=== PATIENT | male | born 1950 | race Caucasian/White ===

== ENCOUNTER 2023-12-09 23:41 | Inpatient (IN) | payer OTHER, SELFPAY ==
[2023-12-09] VITALS (14 sets, daily range): BP systolic 127–192; BP diastolic 60–92
[2023-12-09 18:31] LABS: % Basophils 0.6 % (0-2); % Immature Granulocytes 0.4 % (0-0.5); % Lymphocytes 19.6 % (20.5-51.1); % Monocytes 9.2 % (1.7-9.3); % Neutrophils 68.2 % (42.2-75.2); Absolute Basophils 0.1 10^3/uL (0-0.2); Absolute Eosinophils 0.2 10^3/uL (0-0.7); Absolute Lymphocytes 1.6 10^3/uL (1.2-3.4); Absolute Monocytes 0.8 10^3/uL (0.1-0.6); Absolute Neutrophils 5.6 10^3/uL (1.4-6.5); Hematocrit 44.9 % (39.0-52.0); Hemoglobin 15.4 g/dL (13.0-18.0); Mean Corp Hgb Conc. 34.3 g/dL (33.0-37.0); Mean Corpuscular Hgb 28.9 pg (27.0-31.0); Mean Corpuscular Volume 84.2 fL (80.0-94.0); Mean Platelet Volume 10.2 fL (7.4-10.4); Nucleated Red Blood Cells % 0 % (-); Platelet Count 156 10^3/uL (130-400); Red Blood Cell Count 5.33 10^6/uL (4.70-6.10); Red Cell Dist. Width 12.6 % (11.5-14.5); White Blood Cell Count 8.2 10^3/uL (4.8-10.8)
--- NOTE | 2023-12-09 18:32 | ED.GENMED ---
History of Present Illness
General
Chief Complaint: Chest Pain
Source: patient and spouse
Exam Limitations: none
Time Seen by Provider: 12/09/23 18:22
Nursing documentation reviewed up to this point in time: agreed with
Travel History
Have you had any contact with someone who has COVID-19?: No
Do you have any symptoms of coronavirus? Fever > 100 degrees, chills, cough, shortness of breath, sore throat, loss of taste or smell, muscle aches, or headache?: No
History of Present Illness
History of Present Illness:
73-year-old male presents emergency room complaining of mid chest pain that began at around 5:30 PM. He ate dinner and then got up and went upstairs, and had the pain. It went away, he took a shower and it came back.
Past History
Past History
ED Past Medical History: CAD, HTN, Hypercholesterolemia, [place] (2004) and Other (kidney stone with stent, later stent removed)
ED Past Surgical History: Cardiac (stents 2004) and Orthopedic (R knee scoped 1979)
Social History
Tobacco: Former smoker
Alcohol: None
Personal:
Living: with family
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
Review of Systems
Review of Systems
Allergies reviewed?: Yes
All Other Systems: Not applicable
Constitutional: Reports no symptoms
EENT: Reports no symptoms
Respiratory: Reports no symptoms
Cardiac: Reports chest pain
ABD/GI: Reports no symptoms
: Reports no symptoms
Musculoskeletal: Reports no symptoms
Skin: Reports no symptoms
Neurological: Reports no symptoms
Endocrine: Reports no symptoms
Hematologic/Lymphatic: Reports no symptoms
Psychiatric: Reports no symptoms
Phy Exam
Physical Exam
Physical Exam:
Physical Exam
General: Afebrile
Neck: supple. no meningeal signs. normal posterior pharynx
Heart: s1/s2 regular rate and rhythm, no murmur. equal radial
pulses.
HEENT: Pupils equal round reactive to light, EOMI
Lungs: no acute respiratory distress. clear bilaterally
Abdomen: normal bowel sounds. not tender. no CVAT
Neuro: alert and oriented. no focal neurological deficits cranial nerves II through XII intact
Skin: no rash
Psychiatric: well kept. interactive and cooperative
Extremities: no edema. no calf tenderness. negative homans. good distal pulses
Scores
Heart Score for Chest Pain Patients
STEMI patient?: No
History: Moderately Suspicious
ECG: Normal
Age: >/= 65 years
Risk Factors: >/= 3 Risk Factors or History of CAD
Troponin: >1 - <3 x Normal Limit
Heart Score for Chest Pain Patients: 6
Heart Score Risk: 20.3% MACE over next 6 weeks
Course
Orders/Labs/Results
Orders:
Orders
12/09/23 18:00
EKG [Electrocardiogram (*1)] Urgent
Reason for Study: Chest Pain
EKG- Treatment ONCE
12/09/23 18:20
CBC/With Diff [Complete Blood Count/With Diff] Urgent
CMP [Comprehensive Metabolic Panel] Urgent
Lipase Urgent
Troponin I Urgent
12/09/23 18:32
Nitroglycerin Sublingual [Nitrostat (Sublingual)] 0.4 mg SL NOW STA
12/09/23 19:23
US Abdomen Complete/Upper Urgent
Comment:
Reason For Exam: chest pain, mild lipase elevation
12/09/23 21:20
Troponin I Urgent
12/09/23 21:54
Electrocardiogram (*1) Urgent
Reason for Study: Chest Pain
EKG- Treatment ONCE
12/09/23 22:26
Aspirin Chewable [Low Strength Aspirin] 324 mg PO NOW STA
12/09/23 22:29
Heparin 4,000 units IV NOW STA
Nursing to Place Non Medication Order As Directed
Physician Order: PTT 6 hours after initial start of Heparin infusion
12/09/23 22:30
Heparin 48281 Units/250 ml 25,000 units in 250 ml IV PER PROTOCOL
Weight to be used for heparin protocol in kilograms (kg):: 97.2
Protocol:: Cardiac Tx/Acute Coronary
PTT Goal Range to be used:: PTT 73 to 111 seconds
Order type:: Initial
INITIAL Infusion Dose (UNITS/KG/hr) & then follow protocol:: 12 units/kg/hr
Infusion Dose in UNITS/hr & then follow protocol (UNITS/hr):: 1,000
INFUSION RATE in mL/hr & then follow protocol (mL/hr):: 10
PTT less than or equal to 64 seconds:: Increase rate by 200 units/hr (+ 2 mL/hr)
PTT 64.1 to 72.9 seconds:: Increase rate by 100 units/hr (+ 1 mL/hr)
PTT 73 to 111 seconds:: Target Range. No change in rate.
PTT 111.1 to 130.9 seconds:: Decrease rate by 100 units/hr (- 1 mL/hr)
PTT 131 to 199.9 seconds:: HOLD for 1 hr. Then decrease rate by 200 units/hr (- 2 mL/hr)
PTT greater than or equal to 200 seconds:: HOLD for 2 hrs & Notify Provider. Then decrease by 200 units/hr (-
2 mL/hr)
Lab follow-up:: Each change, PTT q6h until 2 consecutive are therapeutic. Then PTT
daily.
12/09/23 22:44
Admit/Transfer Patient As Directed
Co-Sign Provider:
Level of Care: Inpatient admission
Assign to:: IVU
Physician / Group: dr whitt
Diagnosis: unstable ungina
Reason for Hospitalization: unstable angina, cath, heparin gtt
Expected length of stay greater than two midnights?: Yes
ELOS- Estimated Length of Stay in days: 3
I certify the patient meets the requirements for IP care: Yes
12/09/23 22:45
PTT Urgent
Comment: Obtain baseline before beginning heparin infusion if not already collected
12/09/23 22:50
Code Status As Directed
Resuscitation Status: Full Code
Abnormal Lab Results
12/09/23 12/09/23
18:20 21:20
Absolute Monos (auto) 0.8 H 10^3/uL
(0.1-0.6)
Lymphocytes % 19.6 L %
(20.5-51.1)
BUN 34 H mg/dl
(9-20)
Glucose 138 H mg/dl
(70-99)
AST 119 H U/L
(17-59)
ALT 64 H U/L
(0-50)
Alkaline Phosphatase 128 H U/L
(38-126)
Troponin I 0.081 H* D ng/ml
Lipase 365 H U/L
(23-300)
12/09/23 18:20
12/09/23 18:20
Vital Signs
Initial and Last Documented VS:
Initial Vital Signs
Temp Pulse Resp BP Pulse Ox
98.1 F 89 18 192/92 98
12/09/23 18:05 12/09/23 18:05 12/09/23 18:05 12/09/23 18:05 12/09/23 18:05
Last Documented Vital Signs
Temp Pulse Resp BP Pulse Ox
98.1 F 69 20 127/71 93
12/09/23 18:05 12/09/23 22:45 12/09/23 22:45 12/09/23 22:30 12/09/23 22:45
MDM/Problems Addressed
Differential Diagnosis Includes:
ACS, PE, pancreatitis
MDM/Problems Addressed:
73-year-old male with unstable angina. Do not suspect pancreatitis or common bile duct stone. Abdomen exam benign.
Chronic conditions affecting care: CAD
Acute Exacerbation and/or Progression of Chronic Illness: CAD
*Pulse Oximetry
Patient hypoxic: no
*EKG
Interpreted by ED Provider?: Yes
EKG Intrepretation Date: 12/09/23
EKG Intrepretation Time: 18:03
Interpretation: normal
Comparison EKG: no comparison EKG present
Heart Rate: 87
Rate: normal
Rhythm: sinus
[place]: normal axis
Interval: normal interval
QRS Pattern: normal QRS
Ischemia: no ischemia
*Sectionizer Interpretation
Rate: normal
Interpretation: normal
Heart Rate: 84
Rhythm: sinus
*Critical Care Note
Total Time (30-74mins, 75-104mins- exclusive of procedures): 30
comment:
Critical care statement: A total of 30 minutes of critical care time was provided for this patient. This includes management of unstable vital signs, evaluation of the patient at bedside, reviewing the patient's pertinent medical records, discussion
with consultants, review of old EKGs and review of pertinent medical records. This time with separate from time utilized to perform the aforementioned documented procedures
Data Reviewed
Review of Other/Old Records Reveals: Records
Source: records (prior 2004)
Patient Management
Discussion with other providers: Repairer Screen Crusher (cardiology Dr. Whitt)
Escalation/DeEscalation of care consider admission/obs:
admit indicated
ED Attending Note
-
Portions of this chart may have been created with voice recognition software.� Occasional wrong word or��sound alike� substitutions may have occurred due to the inherent limitations of voice recognition software.
Discharge Plan
Departure
Patient Disposition: Admit
Date of Disposition: 12/09/23
Time of Disposition: 22:27
Admit to: IVU
Presentation/result/management discussed w/ accepting MD/DO: cardiology, Dr. Whitt
Patient with high blood pressure during this ER visit?: Yes
Condition: Fair
Discharge Problem:
Unstable angina
Prescriptions:
No Action
atorvastatin 40 MG tablet
40 mg PO HS
aspirin 81 MG tablet,delayed release (DR/EC)
81 mg PO DAILY
multivitamin 1 EACH tablet
1 ea PO DAILY
tamsulosin 0.4 MG capsule
0.4 mg PO HS
metoprolol succinate 50 MG tablet extended release 24 hr
50 mg PO DAILY 0RF
Eliquis 5 MG tablet
5 mg PO BID Qty: 0 0RF
lisinopril 40 mg tablet
40 mg PO DAILY
Referrals:
Gareth Schreiber MD [Family Provider] -
Interventions
Interventions:
*Risk Screen - Suicide Last Done: 12/09/23 18:29
*General Assessment Last Done: 12/09/23 23:24
*Neglect/Abuse Screening Last Done: 12/09/23 18:29
ED- Fall Risk Assessment Last Done: 12/09/23 23:24
*ED COVID-19 Vaccine History Last Done: 12/09/23 23:18
ED- Cardiac Assessment Last Done: 12/09/23 23:24
Discharge Date and Time
Print Language: NICARAGUAN
[2023-12-09 18:45] LABS: ALT (SGPT) 64 U/L (0-50); AST (SGOT) 119 U/L (17-59); Albumin 4.6 g/dl (3.5-5.0); Alkaline Phosphatase 128 U/L (38-126); Blood Urea Nitrogen 34 mg/dl (9-20); Calcium 9.8 mg/dl (8.4-10.2); Carbon Dioxide 24 mmol/L (22-30); Chloride 104 mmol/L (98-107); Glucose 138 mg/dl (70-99); Lipase 365 U/L (23-300); Potassium 4.5 mmol/L (3.5-5.1); Sodium 138 mmol/L (135-145); Total Bilirubin 0.8 mg/dl (0.2-1.3); Total Protein 7.9 g/dl (6.3-8.2); eGFR > 60.00
[2023-12-09] MEDS: NITROSTAT (SUBLINGUAL) 0.400000000000000022 MG SL (18:54)
[2023-12-09 18:56] LABS: Troponin I < 0.012 ng/ml
[2023-12-09 21:52] LABS: Troponin I 0.081 ng/ml
[2023-12-09] MEDS: LOW STRENGTH ASPIRIN 324 MG PO (22:57)
[2023-12-09] MEDS: HEPARIN 4000 UNITS IV (22:57)
[2023-12-09] MEDS: HEPARIN 25000 UNITS/250 ML IV (22:58)
[2023-12-09 23:03] LABS: APTT 33.6 Sec (23.4-35.0)
--- NOTE | 2023-12-09 23:26 | HPS.HSE ---
Family Physician
-
Family Physician: Gareth Schreiber
Chief Complaint
-
chest pain
History of Present Illness
73-year-old male pt of DR Simpson. with history of Parox afib, CAD with prior drug-eluting stent (DOMINIQUE) to the mid right coronary artery (midRCA) and obtuse marginal 3 (OM 3) in 2004;
presents emergency room complaining of mid chest pain that began at around 5:30 PM. He ate dinner and then got up and went upstairs, and had the pain. It went away, he took a shower and it came back.
PT describes pain in lower sternal area. pain was initially 6-7/10 and after nitro SL given in ED pain is now 0.
ED treatment:
-Nitro SL x 1
-asa 325mg now
-heparin gtt started
EKG nsr, no st elevation
-Trop #1 normal, #2 0.081
ECHO 06/06/23
CONCLUSIONS
Normal left ventricular size, wall thickness and systolic function.
Mild basal inferolateral hypokinesis.
LV ejection fraction is 50-55% by Perez's method of discs.
Stage I diastolic dysfunction suggestive of abnormal relaxation.
Normal right ventricular size and function.
Moderately dilated left atrium.
No significant valvular disease.
Estimated pulmonary artery pressure of 27 mmHg assuming a right atrial pressure
of 3 mmHg.
Medical History
Past Medical History
Past Medical History: Reports Arrhythmia (parox afib), CAD (CAD with prior drug-eluting stent (DOMINIQUE) to the mid right coronary artery (midRCA) and obtuse marginal 3 (OM 3) in 2004;), HTN, Hypercholesterolemia, [place] (2004) and Other (bph,renal
cysts,kidney stone, elevated PSA)
Past Surgical History: Reports Cardiac ( drug-eluting stent (DOMINIQUE) to the mid right coronary artery (midRCA) and obtuse marginal 3 (OM 3) in 2004;), Cholecystectomy (2022) and Orthopedic (right tKR 2020, Left shoulder arthroscopy, cardioversion,
cataract removal, ureteroscopies, hernia repair 2013)
Social History
Tobacco: Non-smoker
Alcohol: None
Drug: None
Personal:
Living: With Family
Employment: Retired
Family History
Family History: Not pertinent
Allergies / Home Medications
Allergies reflects when Allergies were last updated in [facility].
Home Medications with original date entered in [facility]
Allergy/Medication List:
Allergies
Allergy/AdvReac Type Severity Reaction Status Date / Time
Iodinated Contrast Media Allergy DYE-HIVES Verified 12/09/23 18:09
Home Medications
aspirin 81 mg tablet,delayed release 81 mg PO DAILY Blood clot prevention/tx
atorvastatin 40 mg tablet 40 mg PO HS High cholesterol
multivitamin 1 ea PO DAILY Supplement
tamsulosin 0.4 mg capsule 0.4 mg PO HS Urinary issue
metoprolol succinate 50 mg tablet,extended release 24 hr 50 mg PO daily
apixaban 5 mg tablet (Eliquis) 5 mg PO BID Blood clot prevention/tx last dose am 12/09/23
lisinopril 40 mg tablet 40 mg PO DAILY
Review of Systems
-
History Source: Patient and Family
A 12 point ROS was completed and negative except as noted: Yes
Constitutional: Reports No Symptoms
EENT: Reports No Symptoms
Respiratory: Reports No Symptoms
Cardiac: Reports Chest Pain
Abdomen/GI: Reports No Symptoms
: Reports No Symptoms
Musculoskeletal: Reports No Symptoms
Skin: Reports No Symptoms
Neurological: Reports No Symptoms
Endocrine: Reports No Symptoms
Hematologic/Lymphatic: Reports No Symptoms
Psych: Reports No Symptoms
Physical Exam
Vital Signs
Vital Signs
Temp Pulse Resp BP Pulse Ox
98.1 F 69 20 127/71 93
12/09/23 18:05 12/09/23 22:45 06/04/24 22:45 12/09/23 22:30 12/09/23 22:45
Physical Exam
General: Well Developed, Well Nourished, No Apparent Distress and Comfortable
HEENT: NormoCephalic, Moist mucous membranes, Atraumatic and Good Dentition
Respiratory: Clear and Non Labored Respirations
Cardiac: Regular Rhythm (HR nsr 60-70s)
Breast: Deferred by me
GI: Soft, Non Tender, Non Distended and Normal Bowel Sounds
Rectal: Deferred by Provider
Genito-urinary: Deferred by me
Musculoskeletal: No Clubbing and No Cyanosis
Skin: Warm and Dry
Neuro: Awake, Alert, Oriented, AO x 3 and No Motor Deficits
Hematologic/Lymphatic: No Lymphadenopathy
Psych: Calm
Laboratory Results
-
12/09/23 18:20
12/09/23 18:20
Laboratory Results
APTT 33.6 Sec (23.4-35.0) 12/09/23 22:45
Total Bilirubin 0.8 mg/dl (0.2-1.3) 12/09/23 18:20
AST 119 U/L (17-59) H 12/09/23 18:20
ALT 64 U/L (0-50) H 12/09/23 18:20
Alkaline Phosphatase 128 U/L (38-126) H 12/09/23 18:20
Troponin I 0.081 ng/ml H* D 12/09/23 21:20
Lipase 365 U/L (23-300) H 12/09/23 18:20
Data Reviewed
-
Ultrasound: Report Reviewed by me
Medical Tests (Nuc Med, Echo, EKG etc): Report Reviewed by me and Discussed with Physician
Lab Data: Labs Reviewed by me and Discussed with Physician
Impression/Plan
-
IMPRESSION:
73-year-old male pt of DR Simpson. with history of Parox afib, CAD with prior drug-eluting stent (DOMINIQUE) to the mid right coronary artery (midRCA) and obtuse marginal 3 (OM 3) in 2004;
presents emergency room complaining of mid chest pain that began at around 5:30 PM. He ate dinner and then got up and went upstairs, and had the pain. It went away, he took a shower and it came back.
PT describes pain in lower sternal area. pain was initially 6-7/10 and after nitro SL given in ED pain is now 0.
PLAN:
Admit to service of Dr Castellon
#unstable angina
-admit to ivu
-trop #1 0.012, #2 0.081--> cont to trend
-EKG NSR without ST elevations--> cont to trend with troponin
- Received ASA 325mg and nitro SL in and currently CP free
- Cont heparin gtt with protocol
-npo after midnight for poss cardiac cath in am
- cont asa 81 daily
-nitro prn
#htn
-cont lisinopril
#parox afib
-Currently in NSR
-Per his watch sometimes still has paroxysms of afib
- hold eliquis for now in setting of heparin gtt initiation.....last dose of eliquis was am 12/09/23
#hld
-LFT elevated will hold for now
-repeat labs in am
#cad
-cont asa 81 daily
#bph
-cont flomax
full code
[2023-12-10] VITALS (14 sets, daily range): BP systolic 102–142; BP diastolic 53–75; BMI 33.5
[2023-12-10 03:23] LABS: Troponin I 0.099 ng/ml
--- NOTE | 2023-12-10 03:52 | EDRN ---
House provider Daphne Pollack was informed third troponin = 0.099 via TT. Additional troponin orders placed.
[2023-12-10 05:31] LABS: Hemoglobin 13.9 g/dL (13.0-18.0); Mean Corp Hgb Conc. 33.1 g/dL (33.0-37.0); Mean Corpuscular Hgb 28.7 pg (27.0-31.0); Mean Corpuscular Volume 86.8 fL (80.0-94.0); Mean Platelet Volume 10.5 fL (7.4-10.4); Platelet Count 154 10^3/uL (130-400); Red Blood Cell Count 4.84 10^6/uL (4.70-6.10); Red Cell Dist. Width 12.7 % (11.5-14.5)
[2023-12-10 05:40] LABS: APTT 88.4 Sec (23.4-35.0)
[2023-12-10 06:00] LABS: ALT (SGPT) 273 U/L (0-50); AST (SGOT) 196 U/L (17-59); Albumin 3.7 g/dl (3.5-5.0); Alkaline Phosphatase 148 U/L (38-126); Blood Urea Nitrogen 27 mg/dl (9-20); Calcium 8.9 mg/dl (8.4-10.2); Carbon Dioxide 25 mmol/L (22-30); Chloride 106 mmol/L (98-107); Estimated Creatinine Clearance 93 ml/min; Glucose 95 mg/dl (70-99); Potassium 3.9 mmol/L (3.5-5.1); Sodium 139 mmol/L (135-145); Total Bilirubin 0.9 mg/dl (0.2-1.3); Total Protein 6.4 g/dl (6.3-8.2); eGFR > 60.00
--- NOTE | 2023-12-10 08:19 | HPS.HSE ---
Addendum entered and electronically signed by Gacria Castellon MD 12/10/23 09:24:
Patient seen and examined in collaboration with [facility]; agree with below.
-73-year-old male with known coronary artery disease (PCI in 2004), hypertension, hyperlipidemia, PAF (on Eliquis), and prediabetes presenting with ACS, mildly elevated troponin consistent with an NSTEMI.
-Patient will undergo cardiac catheterization today.
-Continue heparin drip; has been given full-dose aspirin.
-Will need an echocardiogram this admission.
-Mildly abnormal LFTs; etiology unclear (hepatic congestion?, but no overt signs of CHF)--will continue to follow for now.
-Will hold off on statin for now due to the abnormal LFTs.
Original Note:
Family Physician
-
Family Physician: Gareth Schreiber
Chief Complaint
-
epigastric discomfort
History of Present Illness
73 y/o male with CAD with NSTEMI in 2004 (per notes predominately GI symptoms)- stenting at that time, HTN, dyslipidemia, PAF on Eliquis, DJD, and BPH and elevated PSA who is here for evaluation after dinner last night, around 5 PM he developed
epigastric discomfort that felt like a gas bubble. It came and went until 9:30 PM and has been gone ever since. He did have some nausea, vomiting, and SOB as well. Currently comfortable and in no acute distress. EKG's normal. Troponin 0.081 and
0.099. Liver tests elevated.
Medical History
Past Medical History
Past Medical History: Reports Arrhythmia and CAD
Past Surgical History: Reports Cholecystectomy
Social History
Tobacco: Non-smoker
Alcohol: None
Personal:
Living: With Family
Family History
Family History: Not pertinent
Allergies / Home Medications
Allergies reflects when Allergies were last updated in [facility].
Home Medications with original date entered in [facility]
Allergy/Medication List:
Allergy : IV dye
Home medicines:
aspirin 81 mg PO daily
atorvastatin 40 mg PO daily
Eliquis 5 mg PO BID
lisinopril 40 mg PO daily
metoprolol succinate 50 mg PO daily
multivitamin 1 daily
tamsulosin 0.4 mg HS
Review of Systems
-
History Source: Patient
A 12 point ROS was completed and negative except as noted: Yes
Respiratory: Reports Trouble Breathing
Cardiac: Reports Chest Pain
Abdomen/GI: Reports Abdominal Pain, Nausea and Vomiting
Physical Exam
Vital Signs
Vital Signs
Temp Pulse Resp BP Pulse Ox
98.1 F 62 19 136/62 95
12/09/23 18:05 12/10/23 06:00 12/10/23 06:00 12/10/23 06:01 12/09/23 23:00
Physical Exam
General: Well Developed, Well Nourished and No Apparent Distress
HEENT: NormoCephalic and Anicteric
Respiratory: Clear and Non Labored Respirations
Cardiac: Regular Rhythm
GI: Soft, Non Tender and Non Distended
Skin: Warm and Dry
Neuro: AO x 3
Psych: Calm
Laboratory Results
-
12/10/23 05:20
12/10/23 05:20
Laboratory Results
APTT 88.4 Sec (23.4-35.0) H 12/10/23 05:20
Total Bilirubin 0.9 mg/dl (0.2-1.3) 12/10/23 05:20
AST 196 U/L (17-59) H 12/10/23 05:20
ALT 273 U/L (0-50) H 12/10/23 05:20
Alkaline Phosphatase 148 U/L (38-126) H 12/10/23 05:20
Troponin I Cancelled 12/10/23 05:29
Lipase 365 U/L (23-300) H 12/09/23 18:20
Data Reviewed
-
Ultrasound: Report Reviewed by me (abdominal u/s: Prior cholecystectomy. Simple bilateral renal cysts. Nonvisualization of the pancreas, proximal IVC and abdominal aorta.)
Medical Tests (Nuc Med, Echo, EKG etc): Image Personally Visualized and interpreted (EKG NSR) and Other (will order updated echo)
Lab Data: Labs Reviewed by me
Impression/Plan
-
IMPRESSION/PLAN:
NSTEMI:
-this is high risk diagnosis
-patient with known CAD and stenting, with similar symptoms with [place] 2004
-full dose aspirin administered, continue 81 mg daily- continue heparin drip, which requires intensive monitoring
-cardiac cath today- needs pre-treatment with IV dye allergy- per Dr. Vang will give famotidine and prednisone now, then corn lab technician will order/administer Benadryl and prednisone solution maker to corn lab technician at appropriate time. I updated corn lab technician charge
nurse on this as well.
-continue BB, hold statin with elevated LFT's
-trend trops to peak
-check echo
HTN:
-continue ACEI and BB and monitor
Dyslipidemia:
-check lipids
-hold statin as above
Elevated LFT's:
-no liver abnormality on u/s
-denies ETOH or Tylenol use
-follow LFT's. May need more work-up, but address urgent cardiac issues first.
-holding statin
[2023-12-10] MEDS: ASPIR LOW (ENTERIC COATED) 81 MG PO (08:22)
[2023-12-10] MEDS: THERAGRAN 1 TABLET PO (08:22)
[2023-12-10] MEDS: ZESTRIL 40 MG PO (08:23)
[2023-12-10] MEDS: TOPROL XL 50 MG PO (08:23)
[2023-12-10 09:24] LABS: Troponin I 0.079 ng/ml
[2023-12-10] MEDS: DELTASONE 50 MG PO (09:39)
[2023-12-10] MEDS: NSS (PRESERVATIVE FREE) 8 ML IV (09:39)
[2023-12-10] MEDS: PEPCID 20 MG IV (09:40)
--- NOTE | 2023-12-10 10:40 | CARDSERVLU ---
Echocardiogram with [facility] completed after protocol screening completed. Allergies verified.
Patent IV site: __existing 20 P RFA___
IV site flushed with 0.9% NaCl pre and post administration.
Diluted bolus method utilized to enhance visualization of ventricular basurto.
Total volume given: __4.0__ mL
Patient tolerated all procedures well without complications.
[2023-12-10 13:10] LABS: APTT 92.5 Sec (23.4-35.0)
--- NOTE | 2023-12-10 15:32 | ITS.CL.CATH ---
Independent Contractor - Catheterization
Cardiac Catheterization
Procedure Report:
CARDIAC CATHETERIZATION REPORT
Date of Procedure: 12/10/2023
Referring: Garcia Castellon M.D.
INDICATION: Known coronary artery disease, mild troponin elevation.
PROCEDURE:
1. Left heart catheterization.
2. Coronary angiography.
ACCESS:
6 Q[place] right radial artery.
CATHETERS:
1. 5 [place] JR4.
2. 5 [place] JL 3.5.
HEMODYNAMIC DATA
Weight (kg): 97.1
AO (s/d/x, mmHg): 118/72/93
LV (s/x mmHg): 119/15
LEFT VENTRICULOGRAPHY: Not performed.
CORONARY ANGIOGRAPHY
Dominance: Right.
Left Main: Normal size, trifurcating vessel. There is no coronary artery disease.
LAD: Normal size vessel giving rise to 2 diagonals. There are luminal irregularities in the proximal vessel. There is a small, angulated spicule, possibly a healed plaque in the proximal vessel immediately before a downward turn of the LAD that
is nonobstructive.
Ramus: Small, diminutive vessel. There is no coronary disease.
Circumflex: Normal size, nondominant vessel giving rise to 2 obtuse marginals. OM1 is a small to medium size vessel approximately 2 mm in diameter. OM 2 is a much larger vessel that subsequently bifurcates into an upper and lower branch. The
upper branch is severely tortuous. The lower branch is a more dominant of the 2 branches and supplies the inferolateral wall. A patent stent is present in the proximal portion of the lower branch of OM 2 with no evidence of in-stent restenosis.
RCA: Normal size, dominant vessel. A patent stent is present in the mid vessel with no evidence of in-stent restenosis. There are minor luminal irregularities.
INTERVENTION(S)
None.
Closure Device: Vascular band.
Radiation (mGy): 344.75
DAP (cm2.Gy): 20.5158
Fluoroscopy time (minutes): 1.8
Sedation time (minutes): 34
CONCLUSIONS
1. Right dominant circulation with patent stents in the mid RCA and the proximal portion of the lower branch of OM 2, a nonocclusive spicular lesion in the proximal LAD which may be a healed plaque and minor luminal irregularities elsewhere.
2. Top normal filling pressures (LVEDP = 15 mmHg at 97.1 kg).
RECOMMENDATIONS:
1. Expectant management after cardiac catheterization via right radial approach.
2. Limited weight bearing on the right wrist for one week.
3. No obvious source for troponin elevation or chest discomfort. Review of the chart shows evidence of severe hypertension on presentation, raising the possibility of hypertensive emergency.
4. Workup transaminitis. Minimize hepatotoxins.
Copy to: Garcia Castellon M.D., Gareth Schreiber M.D., Eric Simpson M.D.
Lewis Vang DO, FACC, FACP
[2023-12-10] MEDS: NSS 1000 IV (16:49)
--- NOTE | 2023-12-10 19:32 | PTCARENOTE ---
Patient received from garage laborer via wheelchair. Patient ambulated into the room and used the bathroom. Cath site intact, no bleeding. VSS. AAOx3, patient oriented to the room. Call yepez is within reach.
[2023-12-10] MEDS: FLOMAX 0.400000000000000022 MG PO (20:38)
[2023-12-11 03:30] VITALS: BP 110/59
[2023-12-11 05:49] LABS: Hemoglobin 13.7 g/dL (13.0-18.0); Mean Corp Hgb Conc. 33.4 g/dL (33.0-37.0); Mean Corpuscular Hgb 29.1 pg (27.0-31.0); Mean Corpuscular Volume 87.2 fL (80.0-94.0); Mean Platelet Volume 10.6 fL (7.4-10.4); Platelet Count 150 10^3/uL (130-400); Red Cell Dist. Width 12.6 % (11.5-14.5); White Blood Cell Count 8.7 10^3/uL (4.8-10.8)
[2023-12-11 06:08] LABS: ALT (SGPT) 170 U/L (0-50); AST (SGOT) 70 U/L (17-59); Albumin 3.5 g/dl (3.5-5.0); Alkaline Phosphatase 120 U/L (38-126); Blood Urea Nitrogen 28 mg/dl (9-20); Calcium 8.7 mg/dl (8.4-10.2); Carbon Dioxide 22 mmol/L (22-30); Chloride 106 mmol/L (98-107); Estimated Creatinine Clearance 94 ml/min; Glucose 129 mg/dl (70-99); HDL Cholesterol 52 mg/dl; LDL Cholesterol, Calculated 57 mg/dl; Sodium 137 mmol/L (135-145); Total Bilirubin 0.6 mg/dl (0.2-1.3); Total Cholesterol 123 mg/dl (50-199); Total Protein 6.2 g/dl (6.3-8.2); Triglyceride 72 mg/dl (10-149); Very Low Density Lipoprotein 14 mg/dl (0-30); eGFR > 60.00
--- NOTE | 2023-12-11 06:59 | CON.GI ---
Addendum entered and electronically signed by DAINA Barrett 12/11/23 15:03:
message sent to office to arrange OP follow up with [facility]
Original Note:
Consultation
-
Date/Time Consultation Requested: 12/10/23 1500
Date/Time Consultation Performed: 12/11/23 0700
Requesting Provider: DAINA Hartman
Performing Provider: DAINA Blanchard, Ronak Maria MD
Reason for Consultation: increase liver function
Medical History
Chief Complaint / HPI
Chief Complaint: epigastric/chest pain
History of Present Illness:
Pt is a 73yo with hx Afib on Eliquis, CAD with DOMINIQUE 2004, HTN, hypercholesterolemia, NH, pre DM prior madina 04/2023 presents with chest pain/epigastric pain. Initial concern for for unstable angina with peak trop 0.099. He completed cath 12/09 with
patent stents non occlusive lesion proximal LAD healed plaque with luminal irregularity and normal filling pressure with no obvious source for troponin elevation and chest pain. He was also noted with some rise in LFT's after admission with bili
0.9, AST 196, ALT 273 and alk phos 148. Initial lipase 365. 6/4- US abdomen noted with prior madina, CBD normal b/l simple renal cysts and non visualization of pancreas, proximal IVC and abdominal aorta. Prior LFT's normal in [id number]. Pain
similar to pain when madina completed last fall and post prandial with onset Friday night. Pain was 9/10 on admission now resolved. Since madina he has had some mild incisional discomfort and feeling of bubble in epigastric area at time. He also
admits to vomiting with onset of pain and dark urine. No new medications. No ETOH use.
Pt had rare NSAID last 2 months ago. He otherwise denies dysphagia, GERD, diarrhea, constipation or rectal bleeding.
Past Medical History
Past Medical History: Arrhythmias (PAF), CAD (with DOMINIQUE), HTN, Hypercholesterolemia, NH and Other (BPH, renal cysts, kidney stones, elevated PSA, pre DM)
Past Surgical History: Cardiac (cardiac stent-mid RCA, obtuse marginal 3 ), Cholecystectomy and Other (right tKR 2020, Left shoulder arthroscopy, cardioversion, cataract removal, ureteroscopies, hernia repair 2013)
Social History
Tobacco: Former Smoker (quit 1989)
Alcohol: Former (quit 1992)
Drug: Marijuana (occasional gummy)
Personal:
Living: With Family
Employment: Retired
Family History
Family History: Other (no family hx colon Ca or polyps)
Allergies / Home Medications
Allergy/AdvReac Type Severity Reaction Status Date / Time
Iodinated Contrast Media Allergy DYE-HIVES Verified 12/09/23 18:09
�Medication �Instructions �Recorded
aspirin 81 mg tablet,delayed 81 mg PO DAILY Blood clot 04/26/14
release prevention/tx
atorvastatin 40 mg tablet 40 mg PO HS High cholesterol 04/26/14
multivitamin 1 ea PO DAILY Supplement 04/19/20
tamsulosin 0.4 mg capsule 0.4 mg PO HS Urinary issue 04/19/20
metoprolol succinate 50 mg 50 mg PO DAILY 06/02/20
tablet,extended release 24 hr
apixaban 5 mg tablet (Eliquis) 5 mg PO BID Blood clot 06/08/21
prevention/tx ##0
lisinopril 40 mg tablet 40 mg PO DAILY 12/09/23
Review of Systems
-
History Source: Patient
Constitutional: Reports No Symptoms
EENT: Reports No Symptoms
Respiratory: Reports No Symptoms
Cardiac: Reports Chest Pain
Abdomen/GI: Reports Abdominal Pain, Nausea and Vomiting
: Reports Dark Urine
Musculoskeletal: Reports No Symptoms
Skin: Reports No Symptoms
Neurological: Reports No Symptoms
Endocrine: Reports No Symptoms
Hematologic/Lymphatic: Reports No Symptoms
Vital Signs
Temp Pulse Resp BP Pulse Ox
97.9 F 69 18 110/59 93
12/11/23 03:30 12/11/23 03:30 12/11/23 03:30 12/11/23 03:30 12/11/23 03:30
Physical Exam
Exam
General: Well Developed, Well Nourished and No Apparent Distress
HEENT: Normocephalic, Anicteric and Moist Mucous Membranes
Respiratory: Clear
Cardiac: Regular Rhythm
GI: Soft, Non Tender and Non Distended
Musculoskeletal: No Clubbing and No Cyanosis
Skin: Warm and Dry
Neuro: Awake, Alert and AO x 3
Psych: Calm
Results
WBC 8.7 10^3/uL (4.8-10.8) 12/11/23 04:32
Hgb 13.7 g/dL (13.0-18.0) 12/11/23 04:32
Hct 41.0 % (39.0-52.0) 12/11/23 04:32
MCV 87.2 fL (80.0-94.0) 12/11/23 04:32
Plt Count 150 10^3/uL (130-400) 12/11/23 04:32
Absolute Neuts (auto) 5.6 10^3/uL (1.4-6.5) 12/09/23 18:20
APTT 92.5 Sec (23.4-35.0) H 12/10/23 12:38
Sodium 137 mmol/L (135-145) 12/11/23 04:32
Potassium 4.0 mmol/L (3.5-5.1) 12/11/23 04:32
Chloride 106 mmol/L (98-107) 12/11/23 04:32
Carbon Dioxide 22 mmol/L (22-30) 12/11/23 04:32
BUN 28 mg/dl (9-20) H 12/11/23 04:32
Creatinine 0.8 mg/dL (0.7-1.3) 12/11/23 04:32
Calcium 8.7 mg/dl (8.4-10.2) 12/11/23 04:32
Total Bilirubin 0.6 mg/dl (0.2-1.3) 12/11/23 04:32
AST 70 U/L (17-59) H 12/11/23 04:32
ALT 170 U/L (0-50) H 12/11/23 04:32
Alkaline Phosphatase 120 U/L (38-126) 12/11/23 04:32
Lipase 365 U/L (23-300) H 12/09/23 18:20
Diagnostic Image Results:
12/09/23 : US abdomen Prior cholecystectomy.Simple bilateral renal cysts. Nonvisualization of the pancreas, proximal IVC and abdominal aorta. CBD normal
03/2023 H[facility]
Gallbladder not visualized after 4 hours. This is consistent with cystic duct obstruction.
No evidence for common bile duct obstruction.
04/2023 madina- operative cholangiogram neg
07/2021 CT Abd/pel Without Iv Or Oral
1). There are no obstructing renal or ureteral calculi.
There is no hydronephrosis or hydroureter.
2). There are small bilateral nonobstructing renal calculi.
3). There are small bilateral renal cysts.
4). There is cholelithiasis.
5). Diverticuli are present in the colon with no CT evidence of diverticulitis.
6). There is multilevel lumbar degenerative disc disease.
Prior GI Procedures:
EGD: none
Colonoscopy: 11/2022 [facility]
Three very benign, small polyps removed. Nothing
concerning.
- One 4 mm polyp in the cecum, removed with a cold
snare. Resected and retrieved.
- Two small polyps in the sigmoid colon and in the
transverse colon, removed with a jumbo cold forceps.
Resected and retrieved.
- Diverticulosis in the left colon.
- The examined portion of the ileum was normal.
bx hyperplastic polyp melanosis coli
Assessment / Plan
-
Pt is a 73yo with hx Afib on Eliquis, CAD with DOMINIQUE 2004, HTN, hypercholesterolemia, NH, pre DM prior madina 04/2023 presents with chest pain/epigastric pain. Initial concern for for unstable angina with peak trop 0.099. He completed cath 12/09 with
patent stents non occlusive lesion proximal LAD healed plaque with luminal irregularity and normal filling pressure with no obvious source for troponin elevation and chest pain. He was also noted with some rise in LFT's after admission with bili
0.9, AST 196, ALT 273 and alk phos 148. Initial lipase 365. 12/08- US abdomen noted with prior madina, CBD normal b/l simple renal cysts and non visualization of pancreas, proximal IVC and abdominal aorta. Prior LFT's normal in [id number]. Pain
similar to pain he had last fall with prior madina.
-epigastric/chest pain
-some chronic abd discomfort since madina
-elevated LFT's and mild elevated lipase
-elevated troponin
-CAD with prior NH 2004 with stenting -- stable cath 12/09
-PAF on Eliquis
other med problems:
-madina 04/2023
-HTN
-hyperlipidemia
-BPH
-elevated PSA
PLAN:
Etiology of chest/epigastric pain with vomiting and dark urine related to biliary etiology with rise in LFT's/lipase (? passed stone) vs other-- with trop elevation s/p cards eval and stable cath
abdominal pain now resolved and pt feeling better
tolerated dinner last PM and awaiting breakfast
LFT's improved this am
will add on repeat lipase today
cont to trend labs
US stable no duct dilation
if tolerating breakfast and no recurrent pain consider discharge with repeat LFTs in 1 -2 weeks (left slip on chart for repeat labs)
if not tolerating breakfast or persistent LFT elevation consider MRI/MRCP
reviewed with patient to return to ER for any recurrent pain
-
-
Thank you for consultation and allowing me to participate in the patient's care. Please call the fish conservationist GI physician during the after hours with any questions or concerns.
[2023-12-11 07:55] VITALS: BP 124/60
[2023-12-11] MEDS: ZESTRIL 40 MG PO (08:36)
[2023-12-11] MEDS: THERAGRAN 1 TABLET PO (08:36)
[2023-12-11] MEDS: ASPIR LOW (ENTERIC COATED) 81 MG PO (08:36)
[2023-12-11] MEDS: TOPROL XL 50 MG PO (08:36)
[2023-12-11] MEDS: FLUSH (NSS) 1 FLUSH IV (08:37)
[2023-12-11 09:21] LABS: Lipase 129 U/L (23-300)
--- NOTE | 2023-12-11 11:41 | W.PN.CD ---
Today's Communication / Plan
-
Home today
F/u plans per GI
Routine cardiology f/u
Impression / Plan
-
-
Pain resolved. Doing well. Pain mostly midepigastric, the lft/lipase c/w biliary source of pain
- Suspect GI etiology, agree with GI, passes stone makes most sense
- As per GI => repeat labs 1-2 weeks if abnl => MRCP
- He is at risk for future episodes
Non-ischemic myocardial injury led to the minimal trop elevation
Chronic CAD => cor anatomy good. No obstructive CAD!!!!
HTN
Dyslipidemia => GI ok with resumption of statin
Physical Exam
Vital Signs/Labs
Vital Signs
Temp Pulse Resp BP Pulse Ox
97.5 F 60 16 124/60 95
12/11/23 07:55 12/11/23 08:36 12/11/23 07:55 12/11/23 08:36 12/11/23 09:00
12/10/23 12/11/23 12/12/23
06:59 06:59 06:59
Actual Weight 97.2 kg 99.932 kg
12/11/23 04:32
12/11/23 04:32
APTT 92.5 Sec (23.4-35.0) H 12/10/23 12:38
Triglycerides 72 mg/dl (10-149) 12/11/23 04:32
LDL Cholesterol, Calc 57 mg/dl 12/11/23 04:32
VLDL Cholesterol, Calc 14 mg/dl (0-30) 12/11/23 04:32
HDL Cholesterol 52 mg/dl 12/11/23 04:32
LAB Results
12/09/23 12/09/23 12/10/23
18:20 21:20 02:45
Troponin I < 0.012 0.081 H* D 0.099 H*
12/10/23 12/10/23 12/10/23
05:29 08:26 14:00
Troponin I Cancelled 0.079 H* Cancelled
12/10/23
20:00
Troponin I Cancelled
Physical Exam
Constitutional: No acute distress
EENT: Anicteric
Cardiovascular: Rhythm & rate is regular and Pedal edema is absent
Respiratory: Respiratory effort normal and Lungs clear to auscul.
GI: Soft and Distention absent
Neuro/Psych: AO x 3
Other: Cath Site (good)
Data Reviewed
-
Date of Service: December 11, 2023
[2023-12-11 11:45] VITALS: BP 136/66
--- NOTE | 2023-12-11 13:03 | W.DS.TRANS ---
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
-
Discharge Instructions:
Sleep Apnea Risk Intermediate
Discharge Diagnosis/Procedures Cardiac catheterization, coronary artery disease
, hypertension, abnormal LFT's
Diet Low Cholesterol,2 Gram Sodium
Activity As tolerated
Driving Restrictions No driving for 24 hours
Bathing Restrictions OK to Shower
Blood Work repeat liver functions in 1-2 weeks [facility]--
see slip on chart
Instructions:
Stand-Alone Forms: DC Instructions- Cath/EP Lab
Changes to Home Medications: No
Discharge Medications:
DC Medications w/original date entered in [facility]
aspirin 81 mg tablet,delayed release 81 mg PO DAILY Blood clot prevention/tx 04/26/14
atorvastatin 40 mg tablet 40 mg PO HS High cholesterol 04/26/14
multivitamin 1 ea PO DAILY Supplement 04/19/20
tamsulosin 0.4 mg capsule 0.4 mg PO HS Urinary issue 04/19/20
metoprolol succinate 50 mg tablet,extended release 24 hr 50 mg PO DAILY 06/02/20
apixaban 5 mg tablet (Eliquis) 5 mg PO BID Blood clot prevention/tx ##0 06/08/21
lisinopril 40 mg tablet 40 mg PO DAILY 12/09/23
nitroglycerin 0.4 mg sublingual tablet 0.4 mg sublingual [id number] PRN chest pain #25 tabs 12/11/23
Home Medication Changes
Pending Results: No
--- NOTE | 2023-12-11 13:48 | CM ---
Alert awake oriented patient who lives with his Gabriela who lives in a 2 story home with 0 step to enter and 14 steps to bed and bathroom. He is independent in all activities of daily living.Offered VN he declined needs.
No VN hx /No SNF hx
No adaptive devices.
Pharmacy [facility]
PCP DR Gareth Schreiber
PLAN Home no anticipated needs
[2023-12-11 14:40] VITALS: BP 146/74
== END 2023-12-11 14:57 | disposition home or self-care (01) | DRG 287 ==
LOC: 4 EAST ACU 23:41
PROVIDERS: Internal Medicine Cardiovascular Disease; Nurse Practitioner Adult Health; Nurse Practitioner Family; Student in an Organized Health Care Education/Training Program; ADMITTING PHYSICIAN Internal Medicine; CONSULT PHYSICIAN Internal Medicine; EMERGENCY PHYSICIAN Emergency Medicine; FAMILY PHYSICIAN Family Medicine
PROC: B2111ZZ Fluoroscopy of Multiple Coronary Arteries using Low Osmolar Contrast (ICD-10-PCS; 2023-12-10)
PROC: 4A023N7 Measurement of Cardiac Sampling and Pressure, Left Heart, Percutaneous Approach (ICD-10-PCS; 2023-12-10)
PROC: B2151ZZ Fluoroscopy of Left Heart using Low Osmolar Contrast (ICD-10-PCS; 2023-12-10)
DX: R07.9 Chest pain, unspecified (principal); I5A Non-ischemic myocardial injury (non-traumatic); Z87.891 Personal history of nicotine dependence; I10 Essential (primary) hypertension; Z79.82 Long term (current) use of aspirin; I48.0 Paroxysmal atrial fibrillation; I25.10 Atherosclerotic heart disease of native coronary artery without angina pectoris
CPT/HCPCS: 76700; 80053; 80061; 83036; 83690; 84484; 85025; 85027; 85730; 93005; 93306; 93458; C1894; Q9950; Q9967

== ENCOUNTER 2023-12-16 12:52 | Inpatient (IN) | payer OTHER, SELFPAY ==
[2023-12-16] VITALS (8 sets, daily range): BP systolic 103–132; BP diastolic 58–70; BMI 33.2; BMI 32.5
--- NOTE | 2023-12-16 09:24 | ED.GENMED ---
History of Present Illness
General
Chief Complaint: Abdominal Pain
Source: patient, records and spouse
Exam Limitations: none
Time Seen by Provider: 12/16/23 09:02
Nursing documentation reviewed up to this point in time: agreed with
Travel History
Have you had any contact with someone who has COVID-19?: No
Do you have any symptoms of coronavirus? Fever > 100 degrees, chills, cough, shortness of breath, sore throat, loss of taste or smell, muscle aches, or headache?: No
History of Present Illness
History of Present Illness:
73-year-old male with a past medical history of hypertension, hyperlipidemia, CAD, atrial fibrillation, prior cholecystectomy who presents to the emergency department for evaluation of abdominal pain. Patient reports onset of symptoms last Friday
evening after eating�they were initially associated with severe pain and shortness of breath and an episode of nausea/vomiting. At presentation he had elevated troponin and was admitted with concern for unstable angina; he was evaluated with a
cardiac catheterization on 12/10/2023 which showed no obstructive disease. Symptoms thought to be noncardiac. He did have elevated liver function tests as well and had an abdominal ultrasound was nondiagnostic. He was by GI who felt that he may
have had a passed gallstone. His LFTs were improving and so he was ultimately discharged to follow-up as an outpatient. Since then he has had continued occasional pain although not as severe as his initial episode; he has had poor appetite. He
says he has had some very dark urine. He had outpatient LFTs done which were abnormal and was referred back to the emergency room. He has not had additional nausea or vomiting. Has not had a change in his bowel movements. Has not had fever or
chills. Denies any other complaints.
Past History
Past History
ED Past Medical History: CAD, HTN, Hypercholesterolemia, [place] (2004) and Other (kidney stone with stent, later stent removed)
ED Past Surgical History: Cardiac (stents 2004) and Orthopedic (R knee scoped 1979)
Social History
Tobacco: Former smoker
Alcohol: None
Personal:
Living: with family
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
Review of Systems
Review of Systems
All Other Systems: ROS reviewed and negative except as documented in HPI and ROS
Constitutional: Denies fever or chills
EENT: Denies sore throat
Respiratory: Denies cough or trouble breathing
Cardiac: Denies chest pain or palpitations
ABD/GI: Reports abdominal pain and nausea; Denies vomiting, diarrhea or constipated
: Reports dark urine; Denies flank pain
Musculoskeletal: Denies neck pain or back pain
Neurological: Denies dizzy or headache
Phy Exam
Physical Exam
Physical Exam:
General: Awake, alert, oriented x3; no acute distress
Head: Normocephalic, atraumatic
Eyes: Conjunctiva normal, sclera anicteric
Throat: Airway intact, handling secretions
Neck: Trachea midline, supple without meningismus
Lungs: Clear to auscultation bilaterally, no wheezing, rales, rhonchi
Heart: Regular rate and rhythm, no murmurs, gallops, or rubs
Abd: Soft, non distended, mildly tender in the epigastric region
Neuro: No gross deficits
Skin: no rash, no jaundice noted
Extremities: No edema in extremities, warm and well-perfused
Scores
Heart Failure Risk
Heart Failure Risk Score: Not Applicable
Heart Score for Chest Pain Patients
STEMI patient?: Not applicable
Withdrawal Assessment of Alcohol
Withdrawal Assessment Completed?: Not applicable
Course
Orders/Labs/Results
Orders:
Orders
12/16/23 09:19
Complete Blood Count/With Diff Urgent
Comprehensive Metabolic Panel Urgent
Lipase Urgent
Urinalysis Reflex To Culture Urgent
Date Specimen was Collected: 12/16/23
Time Specimen was Collected: 09:17
12/16/23 10:18
GASTROINTESTINAL CONSULT Urgent
Consulting Provider: Hiral Willis
Was physician already notified: Yes
Mrcp Without MR [MR Mrcp Without] Routine
Comment:
Reason For Exam: abd pain, abnormal LFTs
Recent pill cam endoscopy?: No
Abnormal Lab Results
12/16/23
09:19
MPV 10.6 H fL
(7.4-10.4)
Absolute Monos (auto) 0.8 H 10^3/uL
(0.1-0.6)
Lymphocytes % 15.7 L %
(20.5-51.1)
Monocytes % 9.8 H %
(1.7-9.3)
BUN 26 H mg/dl
(9-20)
Glucose 131 H mg/dl
(70-99)
AST 178 H U/L
(17-59)
ALT 647 H* U/L
(0-50)
Alkaline Phosphatase 335 H U/L
(38-126)
Lipase 1561 H* U/L
(23-300)
12/16/23 09:19
12/16/23 09:19
Vital Signs
Initial and Last Documented VS:
Initial Vital Signs
Temp Pulse Resp BP Pulse Ox
36.7 C 77 20 130/70 95
12/16/23 08:53 12/16/23 08:53 12/16/23 08:53 12/16/23 08:53 12/16/23 08:53
Last Documented Vital Signs
Temp Pulse Resp BP Pulse Ox
36.7 C 67 15 118/64 93
12/16/23 08:53 12/16/23 10:00 12/16/23 10:00 12/16/23 10:00 12/16/23 10:00
MDM/Problems Addressed
Differential Diagnosis Includes:
Choledocholithiasis, obstructive mass, biliary stricture/sphincter dysfunction
MDM/Problems Addressed:
73-year-old male presents for evaluation of abdominal pain and abnormal LFTs as described above. Vital signs normal. Exam as above. Will check CBC and CMP, lipase. Will send a urinalysis. Will start with CT abdomen pelvis. Monitor closely
reassess after the above. Anticipate admission.
Labs reviewed: CBC unremarkable, CMP shows abnormal LFTs with an AST of 178, ALT of 647, alk phos of 335 and a lipase of 1561. T. bili is normal. Urinalysis no infection. Unfortunately patient is allergic to IV dye and so we held off on CT scan
will instead proceed with an MRCP. Case discussed with GI for consultation. Case discussed with hospitalist for admission for acute pancreatitis and concern for possible choledocholithiasis.
Chronic conditions affecting care:
Extensive cardiac history
*Radiology
Radiology exam reviewed: radiology read reviewed
*Pulse Oximetry
Patient hypoxic: no
*Critical Care Note
Total Time (30-74mins, 75-104mins- exclusive of procedures): Not Applicable
Data Reviewed
Review of Other/Old Records Reveals: Labs, Records, Radiology Studies, Testing, Progress Notes and Discharge Summary
Source: patient, records and spouse
Patient Management
Discussion with other providers: Hospitalist (Discussed with hospitalist) and [facility] Counselor (Discussed with gastroenterology)
Escalation/DeEscalation of care consider admission/obs:
Admission indicated
ED Attending Note
-
Portions of this chart may have been created with voice recognition software.� Occasional wrong word or��sound alike� substitutions may have occurred due to the inherent limitations of voice recognition software.
Discharge Plan
Departure
Patient Disposition: Admit
Date of Disposition: 12/16/23
Time of Disposition: 10:20
Admit to doctor: Devan
Presentation/result/management discussed w/ accepting MD/DO: Hospitalist
Discharge Problem:
Choledocholithiasis, Acute pancreatitis
Prescriptions:
No Action
atorvastatin 40 MG tablet
40 mg PO HS
aspirin 81 MG tablet,delayed release (DR/EC)
81 mg PO DAILY
multivitamin 1 EACH tablet
1 ea PO DAILY
tamsulosin 0.4 MG capsule
0.4 mg PO HS
metoprolol succinate 50 MG tablet extended release 24 hr
50 mg PO DAILY 0RF
Eliquis 5 MG tablet
5 mg PO BID Qty: 0 0RF
lisinopril 40 mg tablet
40 mg PO DAILY
nitroglycerin 0.4 mg Tablet, Sublingual
0.4 mg sublingual [id number] PRN (Reason: chest pain) Qty: 25 3RF
Referrals:
Gareth Schreiber MD [Family Provider] -
Interventions
Interventions:
*Risk Screen - Suicide Last Done: 12/16/23 08:53
*General Assessment Last Done: 12/16/23 08:53
*Neglect/Abuse Screening Last Done: 12/16/23 08:53
ED- Fall Risk Assessment Last Done: 12/16/23 09:18
*ED COVID-19 Vaccine History Last Done: 12/16/23 09:18
FR-Zszqsw-Tuvyapcymc Assessment Last Done: 12/16/23 09:18
Discharge Date and Time
Print Language: LITHUANIAN
[2023-12-16 09:40] LABS: % Basophils 0.5 % (0-2); % Eosinophils 1.3 % (0-6); % Immature Granulocytes 0.5 % (0-0.5); % Lymphocytes 15.7 % (20.5-51.1); % Monocytes 9.8 % (1.7-9.3); % Neutrophils 72.2 % (42.2-75.2); Absolute Eosinophils 0.1 10^3/uL (0-0.7); Absolute Lymphocytes 1.3 10^3/uL (1.2-3.4); Absolute Monocytes 0.8 10^3/uL (0.1-0.6); Absolute Neutrophils 5.9 10^3/uL (1.4-6.5); Hematocrit 42.2 % (39.0-52.0); Hemoglobin 14.5 g/dL (13.0-18.0); Mean Corp Hgb Conc. 34.4 g/dL (33.0-37.0); Mean Corpuscular Hgb 29.2 pg (27.0-31.0); Mean Corpuscular Volume 85.1 fL (80.0-94.0); Mean Platelet Volume 10.6 fL (7.4-10.4); Nucleated Red Blood Cells % 0 % (-); Platelet Count 144 10^3/uL (130-400); Red Blood Cell Count 4.96 10^6/uL (4.70-6.10); Red Cell Dist. Width 13.3 % (11.5-14.5); White Blood Cell Count 8.2 10^3/uL (4.8-10.8)
[2023-12-16 10:10] LABS: ALT (SGPT) 647 U/L (0-50); AST (SGOT) 178 U/L (17-59); Albumin 3.9 g/dl (3.5-5.0); Alkaline Phosphatase 335 U/L (38-126); Blood Urea Nitrogen 26 mg/dl (9-20); Calcium 9.2 mg/dl (8.4-10.2); Carbon Dioxide 25 mmol/L (22-30); Chloride 103 mmol/L (98-107); Estimated Creatinine Clearance 107 ml/min; Glucose 131 mg/dl (70-99); Lipase 1561 U/L (23-300); Potassium 4.4 mmol/L (3.5-5.1); Sodium 137 mmol/L (135-145); Total Bilirubin 1.2 mg/dl (0.2-1.3); Total Protein 6.9 g/dl (6.3-8.2); eGFR > 60.00
[2023-12-16 10:13] LABS: Urine Albumin Negative (Neg - Trace); Urine Bilirubin Negative (Negative); Urine Character Clear (Clear); Urine Color Yellow; Urine Glucose Negative (Negative); Urine Ketone Negative (Negative); Urine Leukocyte Negative (Negative); Urine Nitrite Negative (Negative); Urine Occult Blood Negative (Negative); Urine Urobilinogen Negative (Neg - 1+)
--- NOTE | 2023-12-16 11:31 | CON.GI ---
Addendum entered and electronically signed by Hiral Willis DO 12/16/23 16:38:
Patient seen examined independently of [employer]. I agree with her note with my additions below
Juan is a 73-year-old male with history of atrial fibrillation on Eliquis, CAD with drug-eluting stent from 2004, cholecystectomy in Apr 2023 who was recently here with significant epigastric pain initially thought to be unstable angina with mildly
elevated troponin who underwent a cardiac catheterization with no obvious source for his troponin elevation or chest pain. Prior to discharge he had a rise in LFT pattern with a total bilirubin of 0.9, AST of 196, ALT of 273 and an alkaline
phosphatase of 148. Lipase was 365. He had an ultrasound that showed no significant findings with the common bile duct being normal without dilation. Patient states he felt a little discomfort prior to going home but was okay on Friday but did
not want to eat because he was concerned about making it worse then on Friday he had a mild exacerbation of the same pain but much less in severity than what brought him in last week. On Friday he had mild epigastric pain that lasted about 10
minutes with some nausea without vomiting. patient denies any alcohol use. No family history of pancreatic or liver disease. No herbals. No recent illness. He is on lisinopril and atorvastatin which are class III drugs in terms of causes of
pancreatitis
12/10/23 total bilirubin 0.9, AST 196, ALT 273, alkaline phosphatase 148
12/11/23 bilirubin 0.6, AST 70, ALT 170, alkaline phosphatase 120
12/15/23 total bilirubin 1.8, alkaline phosphatase of 479, AST of 336, ALT of 810 outpatient
12/16/23 Total bilirubin 1.2, AST 178, ALT 647, alkaline phosphatase , lipase 1561
12/16/23 abdominal MRI with MRCP shows normal-appearing liver, absent gallbladder, no ductal dilatation with common bile duct of 7 mm with no intrahepatic ductal dilatation. Normal-appearing pancreas, normal spleen
Today, clinically and on exam patient is asymptomatic with no nausea vomiting abdominal pain
Overall based on his clinical picture and LFT pattern he sounds like he passed a stone and perhaps if we had imaging on last Friday or Friday when he came in Maybe we would have seen it
He is currently asymptomatic including no tenderness on palpation
Will start a full liquid diet, monitor LFTs
IV fluids, avoid statins in the setting of this significant ALT elevation
Original Note:
Consultation
-
Date/Time Consultation Requested: 12/16/23 1015
Date/Time Consultation Performed: 12/16/23 1130
Requesting Provider: Eric Roman MD
Performing Provider: DAINA Blanchard, Hiral Willis DO
Reason for Consultation: abdominal pain increased LFT and lipase
Medical History
Chief Complaint / HPI
Chief Complaint: abdominal pain
History of Present Illness:
Pt is a 73yo with hx Afib on Eliquis, CAD with DOMINIQUE 2004, colon polyps, HTN, hypercholesterolemia, [place], pre DM prior madina 04/2023 presents with chest pain/epigastric pain. Initial concern for for unstable angina with peak trop 0.099. He completed
cath 12/09 with patent stents non occlusive lesion proximal LAD healed plaque with luminal irregularity and normal filling pressure with no obvious source for troponin elevation and chest pain. He was also noted with some rise in LFT's after
admission with bili 0.9, AST 196, ALT 273 and alk phos 148. Initial lipase 365. 6/4- US abdomen noted with prior madina, CBD normal b/l simple renal cysts and non visualization of pancreas, proximal IVC and abdominal aorta. Prior LFT's normal in
[id number]. LFT's and pain did improve and pt was discharged. He now admits on day of discharged he did develop some recurrent symptoms but preferred to go home. Over the weekend noted dark urine and recurrent pain with some chills. He went to
lab 12/14 with noted elevated LFT's with and on admission bili 1.2 AST 178, ALT 647, alk phos 335 with lipase 1561. Pain similar to pain when madina completed last fall with some periodic belching since madina last fall. He also admits to vomiting
with onset of pain and dark urine. No new medications. No ETOH use.
He otherwise denies dysphagia, GERD, diarrhea, constipation or rectal bleeding. Pt also with elevated PSA due for MRI pelvis.
Past Medical History
Past Medical History: Arrhythmias (PAF), CAD (with DOMINIQUE), HTN, Hypercholesterolemia, [place] and Other (BPH, renal cysts, kidney stones, elevated PSA, ureteral stricture pre DM, colon polyps)
Past Surgical History: Cardiac (cardiac stent-mid RCA, obtuse marginal 3 ), Cholecystectomy and Other (right tKR 2020, Left shoulder arthroscopy, cardioversion, cataract removal, ureteroscopies, hernia repair 2013)
Social History
Tobacco: Former Smoker (quit 1989)
Alcohol: Former (quit 1992)
Drug: Marijuana (occasional gummy)
Personal:
Living: With Family
Employment: Retired
Family History
Family History: Other (no family hx colon Ca or polyps)
Allergies / Home Medications
Allergy/AdvReac Type Severity Reaction Status Date / Time
Iodinated Contrast Media Allergy DYE-HIVES Verified 12/16/23 08:57
�Medication �Instructions �Recorded
aspirin 81 mg tablet,delayed 81 mg PO DAILY Blood clot 04/26/14
release prevention/tx
atorvastatin 40 mg tablet 40 mg PO HS High cholesterol 04/26/14
tamsulosin 0.4 mg capsule 0.4 mg PO HS Urinary issue 04/19/20
apixaban 5 mg tablet (Eliquis) 5 mg PO BID Blood clot 06/08/21
prevention/tx ##0
lisinopril 40 mg tablet 40 mg PO DAILY Blood Pressure 12/09/23
nitroglycerin 0.4 mg sublingual 0.4 mg sublingual [id number] PRN 12/11/23
tablet chest pain #25 tabs
ibuprofen 400 mg tablet 400 mg PO Q6HPRN PRN mild pain 12/16/23
metoprolol succinate 50 mg 50 mg PO DAILY Blood Pressure 12/16/23
tablet,extended release 24 hr
therapeutic multivitamin 1 tab PO DAILY Supplement 12/16/23
Review of Systems
-
History Source: Patient
Constitutional: Reports Chills
EENT: Reports No Symptoms
Respiratory: Reports No Symptoms
Abdomen/GI: Reports Abdominal Pain (epigastric ), Nausea and Vomiting
: Reports Dark Urine
Musculoskeletal: Reports No Symptoms
Skin: Reports No Symptoms
Neurological: Reports No Symptoms
Endocrine: Reports No Symptoms
Hematologic/Lymphatic: Reports No Symptoms
Vital Signs
Temp Pulse Resp BP Pulse Ox
98.1 F 59 16 131/61 94
12/16/23 08:53 12/16/23 11:00 12/16/23 10:45 12/16/23 11:00 12/16/23 11:00
Physical Exam
Exam
General: Well Developed, Well Nourished and No Apparent Distress
HEENT: Normocephalic and Anicteric
Respiratory: Clear
Cardiac: Regular Rhythm
GI: Soft, Non Distended and Tender (mild epigastric pain )
Musculoskeletal: No Clubbing and No Cyanosis
Skin: Warm and Dry
Neuro: Awake, Alert and AO x 3
Psych: Calm
Results
WBC 8.2 10^3/uL (4.8-10.8) 12/16/23 09:19
Hgb 14.5 g/dL (13.0-18.0) 12/16/23 09:19
Hct 42.2 % (39.0-52.0) 12/16/23 09:19
MCV 85.1 fL (80.0-94.0) 12/16/23 09:19
Plt Count 144 10^3/uL (130-400) 12/16/23 09:19
Absolute Neuts (auto) 5.9 10^3/uL (1.4-6.5) 12/16/23 09:19
Sodium 137 mmol/L (135-145) 12/16/23 09:19
Potassium 4.4 mmol/L (3.5-5.1) 12/16/23 09:19
Chloride 103 mmol/L (98-107) 12/16/23 09:19
Carbon Dioxide 25 mmol/L (22-30) 12/16/23 09:19
BUN 26 mg/dl (9-20) H 12/16/23 09:19
Creatinine 0.7 mg/dL (0.7-1.3) 12/16/23 09:19
Calcium 9.2 mg/dl (8.4-10.2) 12/16/23 09:19
Total Bilirubin 1.2 mg/dl (0.2-1.3) 12/16/23 09:19
AST 178 U/L (17-59) H 12/16/23 09:19
ALT 647 U/L (0-50) H* 12/16/23 09:19
Alkaline Phosphatase 335 U/L (38-126) H 12/16/23 09:19
Lipase 1561 U/L (23-300) H* 12/16/23 09:19
Diagnostic Image Results:
12/16/23 MRI/MRCP pending
12/09/23 : US abdomen Prior cholecystectomy.Simple bilateral renal cysts. Nonvisualization of the pancreas, proximal IVC and abdominal aorta. CBD normal
03/2023 HIDA
Gallbladder not visualized after 4 hours. This is consistent with cystic duct obstruction.
No evidence for common bile duct obstruction.
04/2023 madina- operative cholangiogram neg
07/2021 CT Abd/pel Without Iv Or Oral
1). There are no obstructing renal or ureteral calculi.
There is no hydronephrosis or hydroureter.
2). There are small bilateral nonobstructing renal calculi.
3). There are small bilateral renal cysts.
4). There is cholelithiasis.
5). Diverticuli are present in the colon with no CT evidence of diverticulitis.
6). There is multilevel lumbar degenerative disc disease.
Prior GI Procedures:
EGD: none
Colonoscopy: 11/2022 [facility]
Three very benign, small polyps removed. Nothing
concerning.
- One 4 mm polyp in the cecum, removed with a cold
snare. Resected and retrieved.
- Two small polyps in the sigmoid colon and in the
transverse colon, removed with a jumbo cold forceps.
Resected and retrieved.
- Diverticulosis in the left colon.
- The examined portion of the ileum was normal.
bx hyperplastic polyp melanosis coli
Assessment / Plan
-
Pt is a 73yo with hx Afib on Eliquis, CAD with DOMINIQUE 2004, colon polyps, HTN, hypercholesterolemia, [place], pre DM prior madina 04/2023 with admission last week with chest pain and elevated troponin. Cath with stable with mild elevated LFT's and lipase
with improvement. Pt was discharged and now admit to some discomfort as he was leaving hospital but wanted to go home and continued pain with dark urine and chills over the weekend. Outpatient Labs 12/14 with elevated LFT's and on return bili
1.2 AST 178, ALT 647, alk phos 335 with lipase 1561. Pain similar to pain when madina completed last fall with some periodic belching since madina last fall. He also admits to vomiting with onset of pain and dark urine. No new medications. No ETOH
use. Pt also with elevated PSA due for MRI pelvis.
-epigastric pain
-some belching since madina
-elevated LFT's and mild elevated lipase
-elevated troponin last week /CAD with prior [place] 2004 with stenting -- stable cath 12/09
-PAF on Eliquis
other med problems:
-madina 04/2023
-HTN
-hyperlipidemia
-BPH/urethral stricture/renal cysts
-elevated PSA-- due OP MR pelvis
PLAN:
Etiology of chest/epigastric pain with vomiting and dark urine related to biliary etiology-- gallstone panc with rise in LFT's/lipase vs other
US last week stable
plan for MRI with MRCP
add blood cultures with some report of shaking chills prior to admission
trend labs
last Eliquis 12/15 5 am cont to hold
pt was due for OP MR pelvis tomorrow with elevated PSA
updated family at bedside
-
-
Thank you for consultation and allowing me to participate in the patient's care. 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
--- NOTE | 2023-12-16 12:00 | HPS.HSE ---
Family Physician
-
Family Physician: Gareth Schreiber
Chief Complaint
-
abnormal LFT
History of Present Illness
HPI: 73-year-old male with past medical history of Afib on Eliquis, CAD with DOMINIQUE 2005, colon polyps, hypertension, hyperlipidemia, prior cholecystectomy; who initially presented with abdominal pain that started ~1 week JOURNAL CLERK after eating. He felt SOB
and had nausea/vomiting at that time, and was admitted 12/09 for elevated troponin presumed 2/2 unstable angina. He underwent cardiac catheterization 12/10/2023 which showed no obstructive disease.
He was also noted to have elevated liver function tests which improved. His abdominal ultrasound at that time was nondiagnostic. He was seen by GI from that visit, who felt that he may have passed gallstone.
The patient followed up in the GI office and was noted to have worsening LFT, hence was prompted to come to the ED for further evaluation.
His epigastric abdominal pain has improved from initial presentation.
Pt has also noted very dark urine.
He denies to fever, N/V SOB, CP etc.
Medical History
Past Medical History
Past Medical History: Reports Arrhythmia and CAD
Past Surgical History: Reports Cholecystectomy
Social History
Tobacco: Non-smoker
Alcohol: None
Personal:
Living: With Family
Family History
Family History: Not pertinent
Allergies / Home Medications
Allergies reflects when Allergies were last updated in [facility].
Home Medications with original date entered in [facility]
Allergy/Medication List:
Allergies
Allergy/AdvReac Type Severity Reaction Status Date / Time
Iodinated Contrast Media Allergy DYE-HIVES Verified 12/16/23 08:57
Home Medications
aspirin 81 mg tablet,delayed release 81 mg PO DAILY Blood clot prevention/tx 04/26/14
atorvastatin 40 mg tablet 40 mg PO HS High cholesterol 04/26/14
tamsulosin 0.4 mg capsule 0.4 mg PO HS Urinary issue 04/19/20
apixaban 5 mg tablet (Eliquis) 5 mg PO BID Blood clot prevention/tx ##0 06/08/21
lisinopril 40 mg tablet 40 mg PO DAILY Blood Pressure 12/09/23
nitroglycerin 0.4 mg sublingual tablet 0.4 mg sublingual [id number] PRN chest pain #25 tabs 12/11/23
ibuprofen 400 mg tablet 400 mg PO Q6HPRN PRN mild pain 12/16/23
metoprolol succinate 50 mg tablet,extended release 24 hr 50 mg PO DAILY Blood Pressure 12/16/23
therapeutic multivitamin 1 tab PO DAILY Supplement 12/16/23
Review of Systems
-
Abdomen/GI: Reports See HPI and Abdominal Pain (mild )
Physical Exam
Vital Signs
Vital Signs
Temp Pulse Resp BP Pulse Ox
36.7 C 62 16 131/61 95
12/16/23 08:53 12/16/23 11:30 12/16/23 10:45 12/16/23 11:00 12/16/23 11:30
Physical Exam
General: Well Developed, Well Nourished, No Apparent Distress, Comfortable and Conversant
HEENT: NormoCephalic, Moist mucous membranes and Atraumatic
Respiratory: Clear and Non Labored Respirations; No Accessory Resp Muscle Use
Cardiac: S1/S2 and Regular Rhythm; No Murmur or Rub
GI: Soft, Non Tender, Non Distended and Normal Bowel Sounds; No Organomegaly
Rectal: Deferred by Provider
Musculoskeletal: No Clubbing, No Cyanosis and No Edema
Skin: Warm and Dry; No Rash
Neuro: Awake and Alert
Psych: Calm and Intact Judgment/Insight
Laboratory Results
-
12/16/23 09:19
12/16/23 09:19
Laboratory Results
Total Bilirubin 1.2 mg/dl (0.2-1.3) 12/16/23 09:19
AST 178 U/L (17-59) H 12/16/23 09:19
ALT 647 U/L (0-50) H* 12/16/23 09:19
Alkaline Phosphatase 335 U/L (38-126) H 12/16/23 09:19
Lipase 1561 U/L (23-300) H* 12/16/23 09:19
Data Reviewed
-
Lab Data: Labs Reviewed by me
Impression/Plan
-
HPI: 73-year-old male with past medical history of Afib on Eliquis, CAD with DOMINIQUE 2004, colon polyps, hypertension, hyperlipidemia, prior cholecystectomy; who initially presented with abdominal pain that started ~1 week [employer] after eating. He felt SOB
and had nausea/vomiting at that time, and was admitted 12/09 for elevated troponin presumed 2/2 unstable angina. He underwent cardiac catheterization 12/10/2023 which showed no obstructive disease.
He was also noted to have elevated liver function tests which improved. His abdominal ultrasound at that time was nondiagnostic. He was seen by GI from that visit, who felt that he may have passed gallstone.
The patient followed up in the GI office and was noted to have worsening LFT, hence was prompted to come to the ED for further evaluation.
His epigastric abdominal pain has improved from initial presentation.
Pt has also noted very dark urine.
He denies to fever, N/V SOB, CP etc.
A/P:
# Stable epigastric pain
# Transaminitis
# Elevated lipase 2/2 acute pancreatitis, ?gallstone pancreatitis
# h/o cholecystectomy
Check MRI/MRCP per GI
Follow LFT
Follow lipase level
NPO with gentle IVF RL
blood cultures added with some report of shaking chills prior to admission
# h/o CAD with prior [place] 2004 with stenting
stable cath 12/09
# PAF on Eliquis
last Eliquis 12/15 5 am, cont to hold
# HTN
cont JOURNAL CLERK Toprol/lisinopril with holding parameter
# hyperlipidemia
Hold Lipitor with elevated LFT
# h/o BPH
# urethral stricture/renal cysts
Elevated PSA, due OP MR pelvis
DVT ppx: Lovenox SQ while off JOURNAL CLERK Eliquis
FC
[2023-12-16] MEDS: LR 1000 IV ×2 (13:58→17:04)
--- NOTE | 2023-12-16 14:36 | PTCARENOTE ---
Received patient from ED via stretcher. AAOx3, ambulated to bed without assistance. Assessed and oriented to room. NPO except meds/sips of clears. Comfortable in bed. IVF infusing as ordered. Call yepez in close reach.
[2023-12-16] MEDS: LOVENOX 40 MG SC (17:06)
[2023-12-16] MEDS: FLOMAX 0.400000000000000022 MG PO (21:26)
[2023-12-17] MEDS: LR 1000 IV (00:30)
[2023-12-17 03:00] VITALS: BP 103/60
[2023-12-17 05:43] LABS: Hematocrit 40.1 % (39.0-52.0); Hemoglobin 13.4 g/dL (13.0-18.0); Mean Corp Hgb Conc. 33.4 g/dL (33.0-37.0); Mean Corpuscular Hgb 29.2 pg (27.0-31.0); Mean Corpuscular Volume 87.4 fL (80.0-94.0); Mean Platelet Volume 10.7 fL (7.4-10.4); Platelet Count 133 10^3/uL (130-400); Red Blood Cell Count 4.59 10^6/uL (4.70-6.10); Red Cell Dist. Width 13.2 % (11.5-14.5); White Blood Cell Count 6.4 10^3/uL (4.8-10.8)
[2023-12-17 05:59] LABS: ALT (SGPT) 450 U/L (0-50); AST (SGOT) 109 U/L (17-59); Albumin 3.3 g/dl (3.5-5.0); Alkaline Phosphatase 256 U/L (38-126); Blood Urea Nitrogen 17 mg/dl (9-20); Calcium 8.8 mg/dl (8.4-10.2); Carbon Dioxide 30 mmol/L (22-30); Chloride 103 mmol/L (98-107); Estimated Creatinine Clearance 93 ml/min; Glucose 95 mg/dl (70-99); Lipase 719 U/L (23-300); Potassium 4.9 mmol/L (3.5-5.1); Sodium 138 mmol/L (135-145); Total Bilirubin 1.1 mg/dl (0.2-1.3); Total Protein 6.1 g/dl (6.3-8.2); eGFR > 60.00
[2023-12-17 07:25] VITALS: BP 99/62
[2023-12-17] MEDS: ASPIR LOW (ENTERIC COATED) 81 MG PO (08:02)
[2023-12-17] MEDS: ZESTRIL PO ×2 (08:02→08:08)
[2023-12-17] MEDS: TOPROL XL PO ×2 (08:03→08:09)
--- NOTE | 2023-12-17 09:04 | W.PN.HOSP.TC ---
Today's Communication/Plan
-
see A/P
Assessment / Plan
Assessment / Plan
HPI: 73-year-old male with past medical history of Afib on Eliquis, CAD with DOMINIQUE 2004, colon polyps, hypertension, hyperlipidemia, prior cholecystectomy; who initially presented with abdominal pain that started ~1 week [employer] after eating. He felt SOB
and had nausea/vomiting at that time, and was admitted 12/09 for elevated troponin presumed 2/2 unstable angina. He underwent cardiac catheterization 12/10/2023 which showed no obstructive disease.
He was also noted to have elevated liver function tests which improved. His abdominal ultrasound at that time was nondiagnostic. He was seen by GI from that visit, who felt that he may have passed gallstone.
The patient followed up in the GI office and was noted to have worsening LFT, hence was prompted to come to the ED for further evaluation.
His epigastric abdominal pain has improved from initial presentation.
Pt has also noted very dark urine.
He denies to fever, N/V SOB, CP etc.
MRCP:
No bile duct dilatation. No MR evidence of choledocholithiasis.
No evidence of hepatic steatosis. Tiny liver cyst.
No main pancreatic duct dilatation. No pancreatic mass or inflammatory changes.
Small renal cysts, including right renal hemorrhagic cyst.
A/P:
# Stable epigastric pain
# Transaminitis , improving
# Elevated lipase 2/2 acute pancreatitis, ?gallstone pancreatitis
# h/o cholecystectomy
MRI/MRCP unrevealing
Cont full liquid diet, ADAT per GI
Follow LFTs, lipase level
avoid statins in the setting of this significant ALT elevation
blood cultures were sent for report of shaking chills prior to admission, follow culture results
# h/o CAD with prior [place] 2004 with stenting
stable cath 12/09
# PAF on Eliquis
last Eliquis 12/15 5 am, cont to hold
# HTN
cont [employer] Toprol/lisinopril with holding parameter
# hyperlipidemia
Hold Lipitor with elevated LFT
# h/o BPH
# urethral stricture/renal cysts
Elevated PSA, due OP MR pelvis
DVT ppx: Lovenox SQ while off [employer] Eliquis
FC
Anticipated Discharge: Within 24 hours
Subjective/Interval History
-
Date of Service: December 17, 2023
Objective Data
-
Labs:
Laboratory Results
12/17/23
04:54
WBC 6.4
Hgb 13.4
Hct 40.1
Plt Count 133
Sodium 138
Potassium 4.9
Chloride 103
Carbon Dioxide 30
BUN 17
Creatinine 0.8
Glucose 95
Calcium 8.8
Total Bilirubin 1.1
AST 109 H
ALT 450 H
Alkaline Phosphatase 256 H
Vital Signs:
Vital Signs
Temp Pulse Resp BP Pulse Ox
37.2 C 67 16 99/57 93
12/17/23 07:25 12/17/23 07:25 12/17/23 07:25 12/17/23 08:09 12/17/23 07:25
I&O
12/16/23 12/17/23 12/18/23
06:59 06:59 06:59
Intake Total 240 / 240
Balance 240 / 240
Review of Systems
-
All other systems: Reviewed and negative
Physical Exam
-
General: Well Developed, Well Nourished, No Apparent Distress, Comfortable and Conversant; Negative Respiratory Distress
HEENT: Normocephalic, Atraumatic, Nose Appears Normal and Ears Appear Normal; Negative Oxygen
Respiratory: Clear to Auscultation and Non Labored Respirations; Negative Accessory Resp Muscle Use
Cardiac: Regular Rhythm and S1/S2
GI: Soft, Nontender, Nondistended and Normal Bowel Sounds
Skin: Warm and Dry
Neuro: Awake, Alert, Oriented, AO x 3 and Nonfocal/Grossly Intact
Psych: Calm and Intact Judgement/Insight
Data Reviewed
-
MRI: Report Reviewed by me and Discussed with Patient
Labs: Labs Reviewed by me and Discussed with Patient
[2023-12-17 11:01] VITALS: BP 141/73
--- NOTE | 2023-12-17 12:49 | W.PN.GI.CBS2 ---
Today's Communication / Plan
-
low fat diet
hold statin
start Eliquis
if doing well in morning d/c and check LFTs on Friday
Assessment / Plan
-
Pt is a 73yo with hx Afib on Eliquis, CAD with DOMINIQUE 2004, colon polyps, HTN, hypercholesterolemia, [place], pre DM prior madina 04/2023 with admission last week with chest pain and elevated troponin. Cath with stable with mild elevated LFT's and lipase
with improvement. Pt was discharged and now admit to some discomfort as he was leaving hospital but wanted to go home and continued pain with dark urine and chills over the weekend. Outpatient Labs 12/14 with elevated LFT's and on return bili
1.2 AST 178, ALT 647, alk phos 335 with lipase 1561. Pain similar to pain when madina completed last fall with some periodic belching since madina last fall. He also admits to vomiting with onset of pain and dark urine. No new medications. No ETOH
use. Pt also with elevated PSA due for MRI pelvis.
-epigastric pain
-some belching since madina
-elevated LFT's and mild elevated lipase
-elevated troponin last week /CAD with prior [place] 2004 with stenting -- stable cath 12/09
-PAF on Eliquis
other med problems:
-madina 04/2023
-HTN
-hyperlipidemia
-BPH/urethral stricture/renal cysts
-elevated PSA-- due OP MR pelvis
PLAN:
Etiology of chest/epigastric pain with vomiting and dark urine related to biliary etiology-- gallstone panc with rise in LFT's/lipase vs other
US last week stable
plan for MRI with MRCP
add blood cultures with some report of shaking chills prior to admission
trend labs
last Eliquis 12/15 5 am cont to hold
pt was due for OP MR pelvis tomorrow with elevated PSA
updated family at bedside
12/17/23:
- i reviewed his liver biopsy from apr 2023 done during his cholecystectomy with the pathologist - no significant findings
- his abdominal pain - likely due to pancreatitis with +pain/elevated lipase, but normal imaging
-- the MRCP (I reviewed myself and with the radiologist - just shows some mild narrowing at the CBD - but radiology said not significant). No dilation of the CBD.
--Etiology for his pancreatitis: -Possibly microlithiasis refluxing back into the pancreatic duct? No alcohol, normal triglycerides, no known genetic or family history of pancreatitis, pancreatitis due to medications is rare and less than 5%. He
is on 2 class III medications but these are highly unlikely the cause. Other rare causes could be biliary sludge and microlithiasis. His calcium levels are normal, no known significant infection or toxin, no pancreatic divisum on imaging and
lastly idiopathic
-- If he has another recurrence, perform EUS
-- May start low-fat diet
-- discussed in detail with the family and patient and spent over 45min with the patient and over 60min total
Subjective
Subjective
Date of Service: December 17, 2023
Objective
Data Reviewed
Laboratory Data:
Laboratory Results
12/17/23 04:54
12/17/23 04:54
Laboratory Results
Magnesium 2.0 mg/dl (1.6-2.3) 12/17/23 04:54
Total Bilirubin 1.1 mg/dl (0.2-1.3) 12/17/23 04:54
AST 109 U/L (17-59) H 12/17/23 04:54
ALT 450 U/L (0-50) H 12/17/23 04:54
Alkaline Phosphatase 256 U/L (38-126) H 12/17/23 04:54
Lipase 719 U/L (23-300) H 12/17/23 04:54
Vital Signs and I&O:
Vital Signs
Temp Pulse Resp BP Pulse Ox
97.9 F 78 18 141/73 92
12/17/23 11:01 12/17/23 11:01 12/17/23 11:01 12/17/23 11:01 12/17/23 11:01
I&O
12/16/23 12/17/23 12/18/23
06:59 06:59 06:59
Intake Total 240 / 240
Balance 240 / 240
[2023-12-17 15:13] VITALS: BP 123/63
--- NOTE | 2023-12-17 16:08 | CM ---
Alert awake oriented patient who lives with his Gabriela who lives in a 2 story home with 0 step to enter and 14 steps to bed and bathroom. He is independent in driving and in all activities of daily living.He was offered VN he declined need.No
adaptive devices.
No VN hx / No SNF history
[facility]
PCP DR Gareth Schreiber
PLAN Home Declined VN
[2023-12-17 19:00] VITALS: BP 133/65
[2023-12-17] MEDS: ELIQUIS 5 MG PO (20:28)
[2023-12-17] MEDS: FLOMAX 0.400000000000000022 MG PO (20:28)
[2023-12-17 23:39] VITALS: BP 142/80
[2023-12-18 05:45] LABS: ALT (SGPT) 349 U/L (0-50); AST (SGOT) 72 U/L (17-59); Albumin 3.4 g/dl (3.5-5.0); Alkaline Phosphatase 234 U/L (38-126); Blood Urea Nitrogen 19 mg/dl (9-20); Calcium 8.6 mg/dl (8.4-10.2); Carbon Dioxide 29 mmol/L (22-30); Chloride 103 mmol/L (98-107); Estimated Creatinine Clearance 93 ml/min; Glucose 126 mg/dl (70-99); Lipase 514 U/L (23-300); Potassium 4.4 mmol/L (3.5-5.1); Sodium 139 mmol/L (135-145); Total Bilirubin 0.9 mg/dl (0.2-1.3); Total Protein 6.2 g/dl (6.3-8.2); eGFR > 60.00
[2023-12-18 07:15] VITALS: BP 127/70
--- NOTE | 2023-12-18 09:08 | W.PN.HOSP.TC ---
Addendum entered and electronically signed by Alysa Clements MD 12/18/23 14:17:
total DC time 35 min
Original Note:
Today's Communication/Plan
-
DC home today
Assessment / Plan
Assessment / Plan
HPI: 73-year-old male with past medical history of Afib on Eliquis, CAD with DOMINIQUE 2004, colon polyps, hypertension, hyperlipidemia, prior cholecystectomy; who initially presented with abdominal pain that started ~1 week [employer]OND [employer] after eating. He felt SOB
and had nausea/vomiting at that time, and was admitted 12/09 for elevated troponin presumed 2/2 unstable angina. He underwent cardiac catheterization 12/10/2023 which showed no obstructive disease.
He was also noted to have elevated liver function tests which improved. His abdominal ultrasound at that time was nondiagnostic. He was seen by GI from that visit, who felt that he may have passed gallstone.
The patient followed up in the GI office and was noted to have worsening LFT, hence was prompted to come to the ED for further evaluation.
His epigastric abdominal pain has improved from initial presentation.
Pt has also noted very dark urine.
He denies to fever, N/V SOB, CP etc.
MRCP:
No bile duct dilatation. No MR evidence of choledocholithiasis.
No evidence of hepatic steatosis. Tiny liver cyst.
No main pancreatic duct dilatation. No pancreatic mass or inflammatory changes.
Small renal cysts, including right renal hemorrhagic cyst.
A/P:
# Stable epigastric pain
# Transaminitis , improving
# Elevated lipase 2/2 acute pancreatitis, ?gallstone pancreatitis
# h/o cholecystectomy
MRI/MRCP unrevealing
diet advanced to low fat and pt tolerated well
LFT and lipase levels improving , follow LFT outpt with PCP
avoid statins in the setting of this significant ALT elevation
blood cultures were sent for report of shaking chills prior to admission, cultures so far negative
# h/o CAD with prior IA 2004 with stenting
stable cath 6/5
# PAF on Eliquis
last Eliquis 12/15 5 am, cont to hold
# HTN
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
# hyperlipidemia
Hold Lipitor with elevated LFT
# h/o BPH
# urethral stricture/renal cysts
Elevated PSA, due OP MR pelvis
DVT ppx: Lovenox SQ while off SECOND OPERATOR Eliquis
FC
DW RN
Anticipated Discharge: Today
Subjective/Interval History
-
Date of Service: December 18, 2023
Objective Data
-
Labs:
Laboratory Results
12/18/23
04:36
Sodium 139
Potassium 4.4
Chloride 103
Carbon Dioxide 29
BUN 19
Creatinine 0.8
Glucose 126 H
Calcium 8.6
Total Bilirubin 0.9
AST 72 H
ALT 349 H
Alkaline Phosphatase 234 H
Vital Signs:
Vital Signs
Temp Pulse Resp BP Pulse Ox
36.9 C 88 16 127/70 93
12/18/23 07:15 12/18/23 07:15 12/18/23 07:15 12/18/23 07:15 12/18/23 07:15
I&O
12/17/23 12/18/23 12/19/23
06:59 06:59 06:59
Intake Total 240 / 240 1200 / 1200
Balance 240 / 240 1200 / 1200
Review of Systems
-
All other systems: Reviewed and negative
Physical Exam
-
General: Well Developed, Well Nourished, No Apparent Distress, Comfortable and Conversant; Negative Respiratory Distress
HEENT: Normocephalic, Atraumatic, Nose Appears Normal and Ears Appear Normal; Negative Oxygen
Respiratory: Clear to Auscultation and Non Labored Respirations; Negative Accessory Resp Muscle Use
Cardiac: Regular Rhythm and S1/S2
GI: Soft, Nontender, Nondistended and Normal Bowel Sounds
Skin: Warm and Dry
Neuro: Awake, Alert, Oriented, AO x 3 and Nonfocal/Grossly Intact
Psych: Calm and Intact Judgement/Insight
Data Reviewed
-
MRI: Report Reviewed by me and Discussed with Patient
Labs: Labs Reviewed by me and Discussed with Patient
[2023-12-18] MEDS: ZESTRIL 40 MG PO (09:11)
[2023-12-18] MEDS: ASPIR LOW (ENTERIC COATED) 81 MG PO (09:11)
[2023-12-18] MEDS: TOPROL XL 50 MG PO (09:14)
[2023-12-18] MEDS: ELIQUIS 5 MG PO (09:14)
--- NOTE | 2023-12-18 09:36 | CM ---
Dilan is being discharged to home today with his . He is independent in ambulation, ADLs, drives in the community. Dilan was offered home health services, however he declined the need.
Pharmacy:[facility]
PCP: Dr. Gareth Schreiber
PLAN: Discharge to home with no services or needs anticipated.
--- NOTE | 2023-12-18 14:04 | W.DCSUMMARY ---
Discharge Summary
Discharge Data
Date of Admission: 12/16/23
Date of Discharge: 12/18/23
-
Pending Results: No
Hospital Course
Principal Diagnosis:
Stable epigastric pain with improved transaminitis and improved elevated lipase level, possibly due to resolving gallstone pancreatitis
Chronic Diagnoses:�
Coronary artery disease with history of cardiac stent; recent stable cardiac catheterization on 12/10/2023.
Paroxysmal atrial fibrillation on Eliquis
Essential hypertension on Toprol and lisinopril
Hyperlipidemia
History of benign prostate hypertrophy
History of urethral stricture/renal cysts
Consultations:�
Gastroenterology
Procedures:�
None
Clinical course:�
This is a 73-year-old male with past medical history as stated above, who presented with worsening liver function test outpatient. He endorsed to stable subacute epigastric abdominal pain that has been ongoing for about 1 week.
Problem 1:
Stable epigastric pain with improved transaminitis and improved elevated lipase level, possibly due to resolving gallstone pancreatitis.
Patient underwent MRI/MRCP this admission, which was unrevealing: did not note any bile duct dilation or choledocholithiasis.
His LFT and lipase levels improved during his hospital stay (AST 170 to 70, ALT 600 to 300, lipase 1500 to 500), and he can continue to follow LFT outpatient with result to his PCP/GI doctor.
While waiting for outpatient LFT result, he was informed to hold his prior to admission Lipitor for the time being.
As for the rest of his medical problems, they were stable during his hospital stay.
Discharge Plan
-
Patient Disposition: Home (Routine Discharge)
Discharge Diagnosis/Procedures: Chronic epigastric pain; elevated liver enzymes
Condition: Good
Diet: As tolerated, Low Fat, Low Cholesterol and Low Sodium
Activity: As tolerated
Driving Restrictions: As prior to admission
Blood Work: LFT in 1 week, result to your PCP
Referrals:
Gareth Schreiber MD [Family Provider] - in less than 1 week
Additional Discharge Medication Instructions: Hold Lipitor until further directed by your PCP (until your LFT normalizes)
Prescriptions:
Continued
aspirin 81 MG tablet,delayed release (DR/EC)
81 mg PO DAILY
tamsulosin 0.4 MG capsule
0.4 mg PO HS
Eliquis 5 MG tablet
5 mg PO BID Qty: 0 0RF
lisinopril 40 mg tablet
40 mg PO DAILY
nitroglycerin 0.4 mg Tablet, Sublingual
0.4 mg sublingual [id number] PRN (Reason: chest pain) Qty: 25 3RF
therapeutic multivitamin Tablet
1 tab PO DAILY
ibuprofen 400 mg Tablet
400 mg PO Q6HPRN PRN (Reason: mild pain)
metoprolol succinate 50 MG tablet extended release 24 hr
50 mg PO DAILY
Held
atorvastatin 40 MG tablet
40 mg PO HS
Hold Instructions: Resume on 12/26/23.
Discharge Orders:
Discharge Patient (As Directed); Ordered 12/18/23
Ordered By: Alysa Clements
Discharge Date and Time
Discharge Date/Time: 12/18/23 10:49
Print Language: SLOVAK
== END 2023-12-18 10:49 | disposition home or self-care (01) | DRG 440 ==
LOC: 4 EAST ACU 12:52
PROVIDERS: ADMITTING PHYSICIAN Internal Medicine; CONSULT PHYSICIAN Internal Medicine; EMERGENCY PHYSICIAN Emergency Medicine; FAMILY PHYSICIAN Family Medicine
DX: K85.10 Biliary acute pancreatitis without necrosis or infection (principal); I10 Essential (primary) hypertension; I48.0 Paroxysmal atrial fibrillation; E78.00 Pure hypercholesterolemia, unspecified; N40.0 Benign prostatic hyperplasia without lower urinary tract symptoms; I25.10 Atherosclerotic heart disease of native coronary artery without angina pectoris; R74.01 Elevation of levels of liver transaminase levels; N28.1 Cyst of kidney, acquired; N35.919 Unspecified urethral stricture, male, unspecified site; Z95.5 Presence of coronary angioplasty implant and graft; Z90.49 Acquired absence of other specified parts of digestive tract; I25.2 Old myocardial infarction; Z87.891 Personal history of nicotine dependence; Z79.01 Long term (current) use of anticoagulants; Z79.82 Long term (current) use of aspirin
CPT/HCPCS: 74183; 80053; 81003; 83690; 83735; 85025; 85027; 87040; 99285; A9575

== ENCOUNTER → 2024-01-20 17:14 | Outpatient (REF) | payer OTHER, SELFPAY | LOC: MRI 3T 17:14 | PROVIDERS: ATTENDING PHYSICIAN Specialist; FAMILY PHYSICIAN Family Medicine | DX: R97.20 Elevated prostate specific antigen [PSA] (principal) | CPT/HCPCS: 72197; A9575 ==

== ENCOUNTER → 2024-03-09 07:23 | Outpatient (REF) | payer OTHER, SELFPAY | LOC: HWRAD 07:23 | PROVIDERS: ATTENDING PHYSICIAN Specialist; FAMILY PHYSICIAN Family Medicine | DX: N20.0 Calculus of kidney (principal) | CPT/HCPCS: 74176 ==